=== PATIENT | female | born 1940 | race African-American/Black ===

== ENCOUNTER 2017-09-28 12:47 | Emergency (ER) | payer OTHER, BC ==
[2017-09-28 12:51] VITALS: BP 124/90; PULSE 71; TEMP 98.3; BMI 42.8
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
== END 2017-09-28 15:35 | disposition home or self-care (01) ==
LOC: JERFT 12:47 → JER 12:47 → JERFT 15:35
DX: S16.1XXA Strain of muscle, fascia and tendon at neck level, initial encounter (principal); V43.52XA Car driver injured in collision with other type car in traffic accident, initial encounter; Y93.89 Activity, other specified; Y92.410 Unspecified street and highway as the place of occurrence of the external cause; S09.90XA Unspecified injury of head, initial encounter; I10 Essential (primary) hypertension; E03.9 Hypothyroidism, unspecified; Z85.3 Personal history of malignant neoplasm of breast
CPT/HCPCS: 70450-TC; 72125-TC; 99281-25